=== PATIENT | female | born 1960 | race African-American/Black ===

== ENCOUNTER → 2019-01-07 | Outpatient (CLI) | payer OTHER | LOC: BC 10:23 | DX: Z12.31 Encounter for screening mammogram for malignant neoplasm of breast (principal) ==

== ENCOUNTER → 2019-01-10 | Outpatient (CLI) | payer OTHER | LOC: RAD 12:35 | DX: R92.1 Mammographic calcification found on diagnostic imaging of breast (principal); R92.2 Inconclusive mammogram ==

== ENCOUNTER → 2019-01-15 | Outpatient (CLI) | payer OTHER ==
--- NOTE | 2019-01-16 16:07 | PATH ---
[facility] [address] [place] [address] PATHOLOGY RPT PROCEDURE Name: AKUA ROSALES Room #: REG [facility]..#: [id number] ������������������ Admission: 01/15/19 ������������������ Date of : 60 Discharge: Report #: [id number] Path Case #: [id number] [facility] Accession Number: [id number] . 01 Material submitted: . PART A: RIGHT LATERAL BREAST CALCIFICATIONS PART B: LEFT CENTRAL BREAST CALCIFICATIONS . 01 Clinical history: . Bilateral breast calcifications . 02 Diagnosis: A. Breast, right lateral breast calcifications, stereotactic needle core biopsies: - Benign breast tissue showing proliferative fibrocystic changes including fibrosis, extensive columnar cell change, apocrine metaplasia, as well as usual ductal hyperplasia in addition to calcifications. - Coarse calcifications are identified in association with nodules and sclerosis, compatible with a remote fibroadenoma. - Negative for atypia or malignancy. . B. Breast, left central breast calcifications, needle core biopsy: - Benign breast tissue with nonproliferative fibrocystic changes including columnar cell change, apocrine metaplasia, as well as coarse calcification. - Coarse calcifications are identified in association with nodules and sclerosis, compatible with a remote fibroadenoma. - Negative for atypia or malignancy. . (IUV:assistant speech language pathologist; 01/16/2019) MBR/01/16/2019 . 02 Comment: Dr. Anastasiya Darby has seen dental sales representative slides of this case and concurs with the diagnosis rendered. (IUV:assistant speech language pathologist; 01/16/2019) . 02 Electronically signed: . Aditi Carballo MD, Pathologist NPI- [id number] . 01 Gross description: . A. The specimen is received in formalin, labeled "Akua Rosales, right lateral", consist of a white cassette with fibroadipose tissue cores measuring 1.7 x 1.5 x 0.3 cm. The contents are transferred in A1. Also received are multiple fibrofatty cores and its fragments measuring 3.2 x 2.5 x 1.0 cm in aggregate, these are entirely submitted in A2-A4. [address] [address] PATHOLOGY RPT PROCEDURE Name: AKUA ROSALES Room #: REG CLI Phong#: [id number] ������������������ Admission: 01/15/19 ������������������ Date of : 60 Discharge: Report #: [id number] Path Case #: [id number] . The specimen was excised at: 50 on 01/15/19, placed in formalin at: 0954 on 01/15/19, formalin exposure: Approximately 14 hours. . B. The specimen is received in formalin, labeled "Akua Rosales, left central", consist of a white cassette with fibroadipose tissue core measuring 2.7 cm in length and up to 0.2 cm in diameter. The fibrofatty core is transferred in B1. Also received are multiple fibrofatty cores and its fragments measuring 2.7 x 2.0 x 0.5 cm in aggregate, these are entirely submitted in B2-B3. . The specimen excised at: 1020 on 01/15/19, placed in formalin at: 1033 on 01/15/19, formalin exposure: Approximately 13 hours. (SWS; 01/15/2019) SHS/SHS . 02 Pathologist provided ICD-10: N60.11, N60.12, D24.2, D24.1 . 02 CPT . 192885, 841407 Specimen Comment: A courtesy copy of this report has been sent to Specimen Comment: [phone], . Specimen Comment: Report sent to / DR HORNER Performed at: [address], [place], [place] [id number] MD Rahat Rey MD Phone: [phone] Performed at: [address] [id number] MD Aditi Carballo MD Phone: [phone]
== END | disposition home or self-care (01) ==
LOC: RAD 09:08
DX: D24.2 Benign neoplasm of left breast (principal); D24.1 Benign neoplasm of right breast; N60.11 Diffuse cystic mastopathy of right breast; N60.12 Diffuse cystic mastopathy of left breast; N60.82 Other benign mammary dysplasias of left breast; N60.81 Other benign mammary dysplasias of right breast

== ENCOUNTER → 2019-09-13 | Outpatient (CLI) | payer OTHER | LOC: RAD 09:15 | DX: R92.8 Other abnormal and inconclusive findings on diagnostic imaging of breast (principal); Z98.890 Other specified postprocedural states ==

== ENCOUNTER → 2020-06-29 | Outpatient (CLI) | payer OTHER ==
[2020-06-29 11:51] LABS: ABSOLUTE NEUTROPHILS 2.2 thou/uL (1.4-8.2); BASOPHILS 0.7 % (0.0-2.0); EOSINOPHILS 0.7 % (0.0-3.0); HEMATOCRIT 43.5 % (37.0-47.0); HEMOGLOBIN 14.3 gm/dL (12.0-15.0); LYMPHOCYTES 38.2 % (24.0-44.0); MCH 27.6 pg (26.0-34.0); MCHC 32.9 g/dL (28.0-37.0); MCV 83.9 fL (80.0-100.0); MONOCYTES 8.8 % (1.0-8.0); PLATELET COUNT 204 thou/uL (150-400); POLYS 51.6 % (36.0-66.0); RBC 5.18 mil/uL (4.20-5.00); RDW 13.7 % (10.5-14.5); WBC 4.2 thou/uL (4.0-11.0)
[2020-06-29 12:22] LABS: ALBUMIN 3.8 g/dL (3.4-5.0); ANION GAP 7 mmol/L (7-16); BUN 12 mg/dL (7-18); CALCIUM 9.4 mg/dL (8.5-10.1); CHLORIDE 103 mmol/L (98-107); CHOLESTEROL 224 mg/dL (<200); CO2 31 mmol/L (21-32); CREATININE 0.8 mg/dL (0.6-1.0); GLUCOSE 113 mg/dL (74-106); HDL CHOLESTEROL 61 mg/dL (>40); LDL CHOLESTEROL 133 mg/dL (<100); LIPASE 173 U/L (73-393); SGOT 19 U/L (15-37); SGPT 30 U/L (30-65); SODIUM 141 mmol/L (136-145); TC:HDL 3.7 Ratio (Not establshd); TOTAL BILIRUBIN 0.4 mg/dL (0.2-1.0); TOTAL PROTEIN 7.5 g/dL (6.4-8.2); TRIGLYCERIDE 152 mg/dL (<150); VLDL 30 mg/dL (<40)
[2020-06-30 02:06] LABS: GLYCOHEMOGLOBIN (HGB A1C) 6.4 % (4.8-5.6)
== END ==
LOC: LABMALL 11:09
PROVIDERS: ATTEND Family Medicine
DX: E78.00 Pure hypercholesterolemia, unspecified (principal); I10 Essential (primary) hypertension; K43.9 Ventral hernia without obstruction or gangrene

== ENCOUNTER → 2020-07-13 | Outpatient (CLI) | payer OTHER ==
[2020-07-13 11:57] LABS: CREATININE 0.7 mg/dL (0.6-1.0)
== END ==
LOC: LAB 11:07
PROVIDERS: ATTEND Family Medicine
DX: K42.0 Umbilical hernia with obstruction, without gangrene (principal); K43.6 Other and unspecified ventral hernia with obstruction, without gangrene; K57.30 Diverticulosis of large intestine without perforation or abscess without bleeding

== ENCOUNTER → 2021-02-08 | Outpatient (CLI) | payer OTHER ==
[2021-02-08 12:15] LABS: ABSOLUTE NEUTROPHILS 2.4 thou/uL (1.4-8.2); BASOPHILS 0.8 % (0.0-2.0); EOSINOPHILS 0.6 % (0.0-3.0); HEMATOCRIT 41.6 % (37.0-47.0); LYMPHOCYTES 33.3 % (24.0-44.0); MCH 29.3 pg (26.0-34.0); MCHC 33.7 g/dL (28.0-37.0); MCV 86.8 fL (80.0-100.0); MONOCYTES 12.1 % (1.0-8.0); PLATELET COUNT 169 thou/uL (150-400); POLYS 53.2 % (36.0-66.0); RBC 4.79 mil/uL (4.20-5.00); RDW 13.9 % (10.5-14.5); WBC 4.4 thou/uL (4.0-11.0)
[2021-02-08 12:37] LABS: ALBUMIN 3.5 g/dL (3.4-5.0); ANION GAP 13 mmol/L (7-16); BUN 14 mg/dL (7-18); CALCIUM 9.2 mg/dL (8.5-10.1); CHLORIDE 102 mmol/L (98-107); CHOLESTEROL 233 mg/dL (<200); CO2 28 mmol/L (21-32); CREATININE 0.8 mg/dL (0.6-1.0); GLUCOSE 141 mg/dL (74-106); HDL CHOLESTEROL 50 mg/dL (>40); POTASSIUM 3.6 mmol/L (3.5-5.1); SGOT 31 U/L (15-37); SGPT 39 U/L (30-65); SODIUM 143 mmol/L (136-145); TC:HDL 4.7 Ratio (Not establshd); TOTAL BILIRUBIN 0.5 mg/dL (0.2-1.0); TOTAL PROTEIN 7.2 g/dL (6.4-8.2); TRIGLYCERIDE 478 mg/dL (<150); VLDL 96 mg/dL (<40)
[2021-02-09 23:06] LABS: GLYCOHEMOGLOBIN (HGB A1C) 5.9 % (4.8-5.6)
== END ==
LOC: LAB 11:23
PROVIDERS: ATTEND Family Medicine
DX: Z12.31 Encounter for screening mammogram for malignant neoplasm of breast (principal); R73.03 Prediabetes; I10 Essential (primary) hypertension; E78.00 Pure hypercholesterolemia, unspecified

== ENCOUNTER → 2021-02-26 | Outpatient (CLI) | payer OTHER ==
[~2021-02-26] MED LIST: B COMPLEX1 EACH PO; BENICAR20 MG PO; COLACE 100 MG100 MG PO; DAILY VITAMIN1 EAC6 PO; FISH OIL 1,001000 M2 PO; IBUPROFEN 200200 M1 PO; MIRALAX17 GM PO; OXYCODONE HCL 55 MG PO; POTASSIUM20 PO; PRAVASTATIN SOD40 MG PO; TOPROL XL100 MG PO; TRIAMTERENE-HC1 EAC3 PO; TYLENOL325 MG PO; VITAMIN D325 MC3 PO
== END ==
LOC: LAB 09:00
PROVIDERS: ATTEND Internal Medicine Gastroenterology
DX: Z01.812 Encounter for preprocedural laboratory examination (principal); Z20.822 Contact with and (suspected) exposure to COVID-19

== ENCOUNTER → 2021-03-01 | Outpatient (CLI) | payer OTHER ==
[~2021-03-01] VITALS: Ht 149.9 cm; Wt 81.6 kg
== END | disposition home or self-care (01) ==
LOC: GI 07:33
PROVIDERS: ATTEND Internal Medicine Gastroenterology
DX: Z12.11 Encounter for screening for malignant neoplasm of colon (principal); K57.30 Diverticulosis of large intestine without perforation or abscess without bleeding; I10 Essential (primary) hypertension; E78.00 Pure hypercholesterolemia, unspecified; Z98.890 Other specified postprocedural states; Z79.899 Other long term (current) drug therapy; Z88.8 Allergy status to other drugs, medicaments and biological substances
CPT/HCPCS: 62110; 62900

== ENCOUNTER → 2021-03-08 | Outpatient (CLI) | payer OTHER | LOC: LAB 08:39 | PROVIDERS: ATTEND Student in an Organized Health Care Education/Training Program | DX: Z01.812 Encounter for preprocedural laboratory examination (principal); Z20.822 Contact with and (suspected) exposure to COVID-19 ==

== ENCOUNTER 2021-03-09 06:17 | Day surgery (SDC) | payer OTHER ==
[~2021-03-09] VITALS: Ht 147.3 cm; Wt 81.6 kg
[~2021-03-09 06:17] MED LIST changes: -COLACE 100 MG100 MG PO; -IBUPROFEN 200200 M1 PO; -MIRALAX17 GM PO; -OXYCODONE HCL 55 MG PO; -TYLENOL325 MG PO
[2021-03-09 07:18] LABS: CALCIUM 9.3 mg/dL (8.5-10.1); CREATININE 1.2 mg/dL (0.6-1.0)
[2021-03-09] MEDS ORDERED: IBUPROFEN 200200 M1 PO (07:44)
[2021-03-09] MEDS ORDERED: TYLENOL325 MG PO (07:45)
[2021-03-09] MEDS ORDERED: OXYCODONE HCL 55 MG PO (07:45)
[2021-03-09] MEDS ORDERED: COLACE 100 MG100 MG PO (07:46)
[2021-03-09] MEDS ORDERED: MIRALAX17 GM PO (07:46)
[2021-03-09 08:40] VITALS: BP 165/85
--- NOTE | 2021-03-09 08:46 | EKG ---
[address] [address] ELECTROCARDIOGRAM REPORT Name: LINDA DÍAZ Room #: 150-2 [facility].#: [id number] Admission: 03/09/21 Attend Phys: Rashawn Alejo MD Discharge: Date of : 60 Report #: [id number] [facility] Test Date: 2021-03-09 Test Time: 06:59:27 Pat Name: LINDA DÍAZ Department: Room: [facility] 2 Gender: F Genetic Counselor: ALINE : 1960 Requested By: Rashawn Alejo Order Number: [id number] : Destin Wolff Measurements Intervals [place] Rate: 74 P: 52 ID: [id number] QRS: 49 QRSD: 85 T: 5 QT: 400 QTc: 444 Interpretive Statements Sinus rhythm Borderline T abnormalities, anterior leads Compared to ECG 04/29/2013 10:06:28 Sinus arrhythmia no longer present T-wave abnormality still present Electronically Signed On 03-09-2021 8:46:14 CDT by Destin Wolff [email or web address] <ELECTRONICALLY SIGNED> By: Destin Wolff MD, [facility] 03/09/21 [id number] Destin Wolff MD, [facility] /EPI
[2021-03-09 10:10] VITALS: BP 165/85
== END 2021-03-09 11:10 | disposition home or self-care (01) ==
LOC: TBA 06:17 → OR 06:17
PROVIDERS: ATTEND Surgery
DX: K43.6 Other and unspecified ventral hernia with obstruction, without gangrene (principal); K42.9 Umbilical hernia without obstruction or gangrene; I10 Essential (primary) hypertension; E78.00 Pure hypercholesterolemia, unspecified; Z98.890 Other specified postprocedural states; Z79.899 Other long term (current) drug therapy; Z88.8 Allergy status to other drugs, medicaments and biological substances
CPT/HCPCS: 50010; 50101; 50386; 50555; 50558; 50857; 50984; 52265; 53307; 53310; 54022; 56525; 56526; 56530; 57092; 58574; 58586; 62110; 62900; 70005